=== PATIENT | female | born 1990 | race Caucasian/White ===

== ENCOUNTER → 2017-08-25 | Outpatient (CLI) | payer BC | LOC: SUN.DIA 09:36 | DX: O24.419 Gestational diabetes mellitus in pregnancy, unspecified control (principal); Z3A.31 31 weeks gestation of pregnancy; Z71.3 Dietary counseling and surveillance | CPT/HCPCS: G0108 ==

== ENCOUNTER → 2017-09-02 | Outpatient (CLI) | payer BC | LOC: SUN.DIA 10:45 | DX: O24.419 Gestational diabetes mellitus in pregnancy, unspecified control (principal); Z3A.30 30 weeks gestation of pregnancy; Z71.3 Dietary counseling and surveillance | CPT/HCPCS: G0108 ==

== ENCOUNTER → 2017-10-07 | Outpatient (CLI) | payer BC | LOC: SUN.DIA 09:29 | DX: O24.419 Gestational diabetes mellitus in pregnancy, unspecified control (principal); Z3A.35 35 weeks gestation of pregnancy; Z71.3 Dietary counseling and surveillance | CPT/HCPCS: G0108 ==

== ENCOUNTER 2017-11-10 00:03 | Inpatient (IN) | payer BC ==
[2017-11-10] VITALS (41 sets, daily range): BP systolic 102–147; BP diastolic 52–96; PULSE 60–121; TEMP 98.3–99.7
[~2017-11-10] VITALS: Ht 167.6 cm; Wt 84.5 kg
[2017-11-10] MEDS ORDERED: PROTONIX20 MG PO (00:55)
[2017-11-10] MEDS ORDERED: PRENATAL MVI (00:55)
[2017-11-10 02:19] LABS: BASO % 0.3 % (0.0-2.0); EOS # 0.1 (0.0-0.7); EOS % 0.7 % (0-4.0); GRAN # 8.3 (1.4-6.5); GRAN % 78.4 % (42.2-75.2); HEMOGLOBIN 9.6 g/dl (12.5-16.0); LYMPH # 1.5 (1.2-3.4); LYMPH % 13.8 % (20.0-51.0); MEAN CELL VOLUME 79 fl (80.0-100.0); MEAN CORPUSCULAR HEMOGLOBIN 25 pg (27.0-31.0); MEAN CORPUSCULAR HGB CONC 31 g/dl (33.0-37.0); MEAN PLATELET VOLUME 13.3 fl (7.4-10.4); MONO # 0.7 (0.1-0.6); MONO % 6.2 % (1.7-9.3); PLATELET COUNT 153 K/mm3 (130-400); RED BLOOD COUNT 3.91 M/mm3 (4.10-5.30); REDCELL DISTRIBUTION WIDTH-CV 14.7 % (11.5-14.5)
[2017-11-10 02:20] LABS: HEMATOCRIT 30.7 % (37.0-47.0)
[2017-11-11 07:54] VITALS: BP 110/62; PULSE 65; TEMP 97.6
[2017-11-11 19:45] VITALS: BP 105/56; PULSE 82; TEMP 98.2
[2017-11-12 08:40] VITALS: BP 117/62; PULSE 89; TEMP 98.3
[2017-11-12] MEDS ORDERED: PERCOCET 325 MG1 TA2 PO (12:21)
[2017-11-12] MEDS ORDERED: IBU600 MG PO (12:21)
== END 2017-11-12 15:40 | disposition home or self-care (01) | DRG 775 ==
LOC: LDRO 00:03 → LDR 01:24 → LDRO 01:40 → LDR 01:40 → OB 18:13
PROVIDERS: Obstetrics & Gynecology
PROC: 10D07Z6 Extraction of Products of Conception, Vacuum, Via Natural or Artificial Opening (ICD-10-PCS; principal; 2017-11-10)
PROC: 0KQM0ZZ Repair Perineum Muscle, Open Approach (ICD-10-PCS; 2017-11-10)
PROC: 0UQGXZZ Repair Vagina, External Approach (ICD-10-PCS; 2017-11-10)
DX: O76 Abnormality in fetal heart rate and rhythm complicating labor and delivery (principal); O70.1 Second degree perineal laceration during delivery; Z3A.39 39 weeks gestation of pregnancy; Z37.0 Single live birth; Z22.330 Carrier of Group B streptococcus
CPT/HCPCS: J2405; J2540; J2590; J7120

== ENCOUNTER → 2017-11-18 | Outpatient (CLI) | payer BC ==
[~2017-11-18] MED LIST: IBU600 MG PO; PERCOCET 325 MG1 TA2 PO; PRENATAL MVI; PROTONIX20 MG PO
== END ==
LOC: LAC 12:55
DX: Z39.1 Encounter for care and examination of lactating mother (principal); Z71.89 Other specified counseling

== ENCOUNTER → 2020-04-19 | Outpatient (CLI) | payer BC ==
[~2020-04-19] MED LIST changes: +SYNTHROID0.05 MG/TA PO
== END | disposition still patient (30) ==
LOC: ZCOL.LAB 08:00
DX: Z20.828 Contact with and (suspected) exposure to other viral communicable diseases (principal)

== ENCOUNTER 2020-04-24 07:16 | Inpatient (IN) | payer BC ==
[2020-04-24] VITALS (49 sets, daily range): BP systolic 100–135; BP diastolic 55–85; PULSE 60–99; TEMP 98.1–98.7
[~2020-04-24] VITALS: Ht 165.1 cm; Wt 91.4 kg
[~2020-04-24 07:16] MED LIST changes: -SYNTHROID0.05 MG/TA PO
--- NOTE | 2020-04-24 07:25 | NUR ---
0725- 39.5, G2L1 arrives on unit for scheduled IOL. Ambulatoroy to LDR4. Oriented to room. Patient reports normal movement. Denies any VB, LOF, or regular contractions. Instructed to change into gown. 0729- RN at bedside. EFM explained and applied. VS obtained. Assessment completed. Consent forms explained and signed. 0735- IV started. Routine labs obtained via IV site. LR infusing without difficulty. 0750- SVE by this RN. See flow record. Roles updated. See physician notification. 0800- Pitocin explained and started at 2mu per protocol. Patient denies questions or needs at this time. 0818- Roles at bedside and reviews POC with patient and family who verbalize understanding. Patient resting with call light within reach.
[2020-04-24] MEDS ORDERED: SYNTHROID0.05 MG/TA PO (08:18)
--- NOTE | 2020-04-24 08:30 | NUR ---
0830- Patient may have epidural as desires per Dr. Cuellar
[2020-04-24 08:35] LABS: BASO % 0.4 % (0.0-2.0); EOS # 0.1 (0.0-0.7); EOS % 0.8 % (0-4.0); GRAN # 7.6 (1.4-6.5); GRAN % 78.5 % (42.2-75.2); HEMOGLOBIN 11.2 g/dl (12.5-16.0); LYMPH # 1.4 (1.2-3.4); MEAN CELL VOLUME 84 fl (80.0-100.0); MEAN CORPUSCULAR HEMOGLOBIN 27 pg (27.0-31.0); MEAN CORPUSCULAR HGB CONC 32 g/dl (33.0-37.0); MEAN PLATELET VOLUME 12.1 fl (7.4-10.4); MONO # 0.6 (0.1-0.6); MONO % 5.7 % (1.7-9.3); PLATELET COUNT 192 K/mm3 (130-400); RED BLOOD COUNT 4.18 M/mm3 (4.10-5.30); REDCELL DISTRIBUTION WIDTH-CV 14.9 % (11.5-14.5)
[2020-04-24 08:36] LABS: HEMATOCRIT 35.1 % (37.0-47.0)
--- NOTE | 2020-04-24 10:20 | NUR ---
Side lying hip release.
--- NOTE | 2020-04-24 11:00 | NUR ---
1100- Patient requesting epidural. Marcia Thompson CRNA notified. LR bolus started. 1129- Marcia Thompson CRNA at bedside for epidural placement. Time out performed. 1133- Epidural placed and single shot by Dr. Jay LEAVITT. 1139- Patient repositioned wedge left. EFM adjusted. Plan of care and safety precautions reviewed with patient who verbalizes understanding.
--- NOTE | 2020-04-24 13:10 | NUR ---
1310- Dr. Cuellar at bedside and reviews plan of care with patient and family who verbalize understanding. 1313- SVE 8cm per Dr. Cuellar. AROM at this time by Dr. Cuellar for moderate amount of light meconium stained fluid. Adela care provied, patient wedge right. 1318- Variable decel to 60bpm noted. Dr. Cuellar remains on unit at nurses desk and observes strip. Patient left lateral. 1327- Recurrent variable decels continue from FHR baseline of 140's to 60-70bmp and lasting 50-[address] Cuellar remains on unit and reviews strips. Pitocin discontinued per Dr. Cuellar. Patient repositioned. Will continue to monitor. Patient updated on plan of care. Patient denies questions or needs at this time. Resting with call light within reach.
--- NOTE | 2020-04-24 15:20 | NUR ---
1520- SVE C/+2. 1523- Dr. Cuellar updated. See physician notification. 1530- Patient instructed on how to push with contractions. Begins pushing with contractions with RN cont. at bedside. Moves vertex well. 1551- Dr. Cuellar updated. See physician notification. Nursery updated. 1604- Dr. Cuellar at bedside for delivery. Patient cont. to push with contractions with RN and Dr. Cuellar at bedside. Pitocin resumed at 2mu. 1622- Spontaneous vaginal delivery of viable male . Nares and mouth bulb suctioned by Dr. Cuellar. to mother's chest where care of assumed by Clotilde Galan RN. Pitocin paused. 1626- Spontaneous and intact delivery of placenta. Pitocin started at 333ml/hr per protocol. Fundus firm and to right per Dr. Cuellar. Straight cath at this time for 50ml or clear yellow urine. 1635- Adela care provided and patient repositioned in bed. Plan of care and safety precautions reviewed with patient who verbalizes understanding. Epidural pump off. See doctor dictation, anesthesia record, and nurses notes.
[2020-04-25 00:17] VITALS: BP 107/66; PULSE 100; TEMP 97.8
[2020-04-25 04:10] VITALS: BP 106/66; PULSE 80; TEMP 97.9
[2020-04-25 07:30] VITALS: BP 115/69; PULSE 86; TEMP 97.7
--- NOTE | 2020-04-25 07:30 | NUR ---
Rests in bed, alert. Ibuprofen 600 mg given per request and as ordered. Baby with patient.
[2020-04-25] MEDS ORDERED: IBU600 MG PO (08:51)
[2020-04-25 12:30] VITALS: BP 103/54; PULSE 89; TEMP 97.9
[2020-04-25 17:00] VITALS: BP 119/73; PULSE 87; TEMP 98.1
--- NOTE | 2020-04-25 17:15 | NUR ---
Rests in bed, alert. Ibuprofen 600 mg given as ordered.
--- NOTE | 2020-04-25 19:50 | NUR ---
1930- DISCHARGE INSTRUCTIONS REVIEWED WITH PT AND SPOUSE, QUESTIONS ENCOURAGED AND ANSWERED, UNDERSTANDING VERBALIZED. 1949- PT ESCORTED OF UNIT AMBULATORY BY Priya BECKMAN RN WITH BABY AND SPOUSE.
== END 2020-04-25 19:50 | disposition home or self-care (01) | DRG 807 ==
LOC: LDR 07:16 → OB 14:59
PROVIDERS: ADMIT Obstetrics & Gynecology
PROC: 10E0XZZ Delivery of Products of Conception, External Approach (ICD-10-PCS; principal; 2020-04-24)
PROC: 0KQM0ZZ Repair Perineum Muscle, Open Approach (ICD-10-PCS; 2020-04-24)
PROC: 10907ZC Drainage of Amniotic Fluid, Therapeutic from Products of Conception, Via Natural or Artificial Opening (ICD-10-PCS; 2020-04-24)
PROC: 3E033VJ Introduction of Other Hormone into Peripheral Vein, Percutaneous Approach (ICD-10-PCS; 2020-04-24)
DX: O99.284 Endocrine, nutritional and metabolic diseases complicating childbirth (principal); Z37.0 Single live birth; O70.1 Second degree perineal laceration during delivery; Z3A.39 39 weeks gestation of pregnancy
CPT/HCPCS: J2590; J2795; J7120

== ENCOUNTER → 2021-02-10 | Outpatient (CLI) | payer BC ==
[~2021-02-10] MED LIST changes: +SYNTHROID0.05 MG/TA PO
== END ==
LOC: COL.RAD 10:28
DX: R10.11 Right upper quadrant pain (principal)

== ENCOUNTER → 2021-10-03 | Outpatient (CLI) | payer BC | LOC: COL.RAD 09:31 | DX: R10.11 Right upper quadrant pain (principal) | CPT/HCPCS: A9537 ==